=== PATIENT | female | born 1980 | race Caucasian/White ===

== ENCOUNTER 2020-03-06 22:06 | Emergency (ER) | payer MEDICAID ==
[~2020-03-06] VITALS: Ht 165.1 cm; Wt 59.0 kg
--- NOTE | 2020-03-06 22:21 | NUR ---
PT CAME TO ER BED 9 C/O "I DRANK SOME VODKA, AND THEY MADE ME DRINK EMBALMING FLUID, SEE MY FACE?". PATIENT ADMITS TO DRINKING ALCOHOL. PATIENT DENIES SUICIDAL IDEATION, DENIES AUDITORY AND VISUAL HALLUCINATION. AAOX3. NO SOB. BREATHING EVENLY AND UNLABORED ON ROOM AIR. CONNECTED TO MONITOR.
--- NOTE | 2020-03-06 22:39 | NUR ---
AEROSOL SUPERVISOR AT BEDSIDE FOR BLOOD DRAW.
[2020-03-06 22:52] LABS: BASOPHILS # (AUTO) 0.1 /CMM (0.0-0.2); BASOPHILS % (AUTO) 1.4 % (0.0-2.0); HEMATOCRIT 41 % (33-45); HEMOGLOBIN 14.1 g/dL (11.5-14.8); LYMPHOCYTES # (AUTO) 2.9 /CMM (0.8-4.8); LYMPHOCYTES % (AUTO) 28.1 % (20.0-44.0); MEAN CORPUSCULAR HGB CONC 35 g/dl (31.0-36.0); MEAN CORPUSCULAR VOLUME 99 fL (82-100); MONOCYTES # (AUTO) 0.5 /CMM (0.1-1.30); MONOCYTES % (AUTO) 4.6 % (2.0-12.0); NEUTROPHILS # (AUTO) 6.5 /CMM (1.8-8.9); NEUTROPHILS % (AUTO) 62.9 % (43.0-81.0); PLATELET COUNT (AUTO) 270 /CMM (150-450); WHITE BLOOD COUNT (AUTO) 10.3 K/uL (4.3-11.0)
[2020-03-06 23:01] LABS: APPEARANCE,URINE Clear (CLEAR); BILIRUBIN,URINE Negative (NEGATIVE); BLOOD, URINE Negative Ery/uL (NEGATIVE); COLOR,URINE Yellow (YELLOW); KETONES,URINE Negative (NEGATIVE); LEUKOCYTE ESTERASE ,URINE Small (NEGATIVE); NITRITE, URINE Negative (NEGATIVE); PROTEIN,URINE Negative (NEGATIVE); UGLUCOSE Negative (NEGATIVE); UROBILINOGEN,URINE 0.2 EU/dL (0.2)
[2020-03-06 23:08] LABS: CALCIUM, SERUM 9.5 mg/dL (8.5-10.1); CARBON DIOXIDE 26 mmol/L (21-32); CHLORIDE 103 mmol/L (98-107); CREATININE 0.7 mg/dL (0.6-1.3); GLUCOSE 138 mg/dL (74-106); POTASSIUM 3.3 mmol/L (3.5-5.1); SODIUM SERUM 139 mmol/L (136-145); UREA NITROGEN, BLOOD 12 mg/dL (7-18)
[2020-03-06 23:16] LABS: ACETAMINOPHEN 0 ug/ml (10-30); ALANINE AMINOTRANSFERASE 151 U/L (12-78); ALBUMIN 4.2 g/dL (3.4-5.0); ALCOHOL, BLOOD < 3 mg/dL (0-0); ALKALINE PHOSPHATASE 86 U/L (46-116); ASPARTATE AMINOTRANSFERASE 74 U/L (15-37); BILIRUBIN,DIRECT 0.1 mg/dL (0.0-0.2); BILIRUBIN,TOTAL 0.3 mg/dL (0.2-1.0); SALICYLATE 1.9 mg/dL (2.8-20.0); TOTAL PROTEIN, SERUM 7.6 g/dL (6.4-8.2)
[2020-03-06 23:45] LABS: BACTERIA,URINE Few /HPF (None Seen); RBC,URINE 0-2 /HPF (0-2); SQUAMOUS EPITHELIAL CELL,UR Few /HPF (None Seen)
--- NOTE | 2020-03-06 23:47 | NUR ---
CALLED ISRAEL RUTHERFORD FOR EVALUATION. NO ANSWER, WILL FOLLOW UP
[2020-03-07] MEDS ORDERED: OLANZAPINE 5 MG TABLET PO ONE
[2020-03-07] MEDS ORDERED: OLANZAPINE 5 MG TABLET ONE (00:01)
--- NOTE | 2020-03-07 00:50 | NUR ---
SPOKE WITH ISRAEL RUTHERFORD FOR EVALUATION
--- NOTE | 2020-03-07 03:11 | NUR ---
PATIENT IS SLEEPING. EASILY AROUSABLE THROUGH TACTILE AND VERBAL STIMULI. BREATHING EVENLY AND UNLABORED ON ROOM AIR. PATIENT IS CURRENTLY CONNECTED TO MONITOR. SITTER AT BEDSIDE.
--- NOTE | 2020-03-07 06:00 | NUR ---
ISRAEL RUTHERFORD AT BEDSIDE FOR EVALUATION
--- NOTE | 2020-03-07 07:14 | NUR ---
CLARISA FROM [facility] INTAKE; CONFIMRED REC'D PACKET
--- NOTE | 2020-03-07 09:41 | NUR ---
Patient awake non distress @ this time folows command continue to monitor
--- NOTE | 2020-03-07 13:29 | NUR ---
PT REEVALUAED BY DR. MCGUIRE. PT IS DECLINING PSYCH PLACEMENT AT THIS TIME
--- NOTE | 2020-03-07 13:32 | NUR ---
PT. VERBALIZED UNDERSTANDING OF AFTERCARE INSTRUCTIONS.Patient discharged to home in stable condition. Written and verbal after care instructions given. Patient verbalizes understanding of instruction.
[2020-03-07 13:40] VITALS: BP 114/65
== END 2020-03-07 13:40 | disposition home or self-care (01) ==
LOC: ER 22:08
DX: R45.851 Suicidal ideations (principal); F19.10 Other psychoactive substance abuse, uncomplicated
CPT/HCPCS: 36415; 80048; 80076; 80305; 80307; 80329; 81001; 85025; 87086; 99285; G0480; 81000-TC

== ENCOUNTER 2020-03-08 07:22 | Emergency (ER) | payer MEDICAID ==
[~2020-03-08] VITALS: Ht 162.6 cm; Wt 74.8 kg
--- NOTE | 2020-03-08 07:32 | NUR ---
pt ambulatory to er bed 09 pt is c/o epigastric pain worst after eating. states been going on for the past 4 days. pt alsio c/o throath burning sensation. pt denies any other complaint. awaiting md hammond.
--- NOTE | 2020-03-08 07:36 | NUR ---
dr denson at bedside for eval.
--- NOTE | 2020-03-08 07:58 | NUR ---
urine collected and sent to lab.
--- NOTE | 2020-03-08 08:08 | NUR ---
rags laborer at bedside for blood draw.
[2020-03-08 08:12] LABS: BASOPHILS # (AUTO) 0.1 /CMM (0.0-0.2); BASOPHILS % (AUTO) 1.2 % (0.0-2.0); EOSINOPHILS % (AUTO) 4.1 % (0.0-6.0); HEMATOCRIT 40 % (33-45); HEMOGLOBIN 13.8 g/dL (11.5-14.8); LYMPHOCYTES # (AUTO) 2.2 /CMM (0.8-4.8); LYMPHOCYTES % (AUTO) 27.1 % (20.0-44.0); MEAN CORPUSCULAR HGB CONC 34 g/dl (31.0-36.0); MEAN CORPUSCULAR VOLUME 99 fL (82-100); MONOCYTES # (AUTO) 0.4 /CMM (0.1-1.30); MONOCYTES % (AUTO) 5.3 % (2.0-12.0); NEUTROPHILS % (AUTO) 62.3 % (43.0-81.0); PLATELET COUNT (AUTO) 245 /CMM (150-450); RED BLOOD CELL COUNT(AUTO) 4.05 MIL/uL (4.0-5.2)
[2020-03-08 08:19] LABS: APPEARANCE,URINE Slightly Cloudy (CLEAR); BILIRUBIN,URINE Negative (NEGATIVE); BLOOD, URINE Negative Ery/uL (NEGATIVE); COLOR,URINE Yellow (YELLOW); KETONES,URINE Negative (NEGATIVE); LEUKOCYTE ESTERASE ,URINE Trace (NEGATIVE); NITRITE, URINE Negative (NEGATIVE); PROTEIN,URINE Negative (NEGATIVE); UGLUCOSE Negative (NEGATIVE); UROBILINOGEN,URINE 0.2 EU/dL (0.2)
[2020-03-08 08:38] LABS: BACTERIA,URINE Moderate /HPF (None Seen); RBC,URINE 0-2 /HPF (0-2); SQUAMOUS EPITHELIAL CELL,UR Few /HPF (None Seen)
[2020-03-08 08:44] LABS: CARBON DIOXIDE 26 mmol/L (21-32); CHLORIDE 102 mmol/L (98-107); CREATININE 0.7 mg/dL (0.6-1.3); GLUCOSE 159 mg/dL (74-106); POTASSIUM 3.6 mmol/L (3.5-5.1); SODIUM SERUM 138 mmol/L (136-145); UREA NITROGEN, BLOOD 8 mg/dL (7-18)
[2020-03-08 08:52] LABS: ACETAMINOPHEN < 2 ug/ml (10-30); ALANINE AMINOTRANSFERASE 143 U/L (12-78); ALBUMIN 3.9 g/dL (3.4-5.0); ALCOHOL, BLOOD < 3 mg/dL (0-0); ALKALINE PHOSPHATASE 81 U/L (46-116); ASPARTATE AMINOTRANSFERASE 73 U/L (15-37); BILIRUBIN,DIRECT 0.1 mg/dL (0.0-0.2); BILIRUBIN,TOTAL 0.2 mg/dL (0.2-1.0); SALICYLATE < 2.8 mg/dL (2.8-20.0); TOTAL PROTEIN, SERUM 7.2 g/dL (6.4-8.2)
--- NOTE | 2020-03-08 08:58 | NUR ---
GRISEL WOOD CALLED FOR POSSIBLE [facility] ADMISSION PER DR WYNNE
--- NOTE | 2020-03-08 09:39 | NUR ---
VACUUM CLOSING MACHINE OPERATOR received a call from ED CRN Gener regarding pt requesting voluntary psychiatric admission. VACUUM CLOSING MACHINE OPERATOR sent [facility] face sheet and initiated voluntary placement. Clinicals faxed to [facility] intake dept.
--- NOTE | 2020-03-08 12:35 | NUR ---
pt sleeping in bed. easily arousable. on monitor w/ stable vitals. will continue to monitor.
--- NOTE | 2020-03-08 13:11 | NUR ---
ACCEPTED AT [facility]. DR. DUNAWAY, DR. TODD UNIT 1 EXT [phone]. [phone]. Addendum: 03/08/20 at 1316 by GO ACCEPTED AT [facility]. DR. DUNAWAY, DR. LUIS UNIT 1 EXT [phone]. [phone].
--- NOTE | 2020-03-08 13:18 | NUR ---
Report given to Tomi CHANCE (becca pugh) for rosa
--- NOTE | 2020-03-08 16:50 | NUR ---
CALLED [facility] FOR TRANSPORT TO [facility]. ETA 1730.
[2020-03-08 17:31] VITALS: BP 110/72
--- NOTE | 2020-03-08 17:31 | NUR ---
transported to [facility]. stable condition.
== END 2020-03-08 17:32 ==
LOC: ER 07:24
DX: R10.13 Epigastric pain (principal); F15.10 Other stimulant abuse, uncomplicated
CPT/HCPCS: 36415; 80048; 80076; 80305; 80307; 80329; 81001; 84703; 85025; 87086; 99285; G0480; 81000-TC

== ENCOUNTER 2021-07-15 14:23 | Emergency (ER) | payer MEDICAID, OTHER ==
[~2021-07-15] VITALS: Ht 167.6 cm; Wt 60.3 kg
[2021-07-15 14:24] VITALS: BP 126/71
[2021-07-15] MEDS ORDERED: HYDROCODONE/APAP 5/325MG TABLET ONE (15:07)
[2021-07-15] MEDS: HYDROCODONE/APAP 5/325MG TABLET PO ONE (15:15)
[2021-07-15 15:21] LABS: BASOPHILS % (AUTO) 0.5 % (0.0-2.0); EOSINOPHILS % (AUTO) 0.6 % (0.0-6.0); HEMATOCRIT 39 % (33-45); HEMOGLOBIN 13.5 g/dL (11.5-14.8); LYMPHOCYTES # (AUTO) 2.3 K/uL (0.8-4.8); LYMPHOCYTES % (AUTO) 24.1 % (20.0-44.0); MEAN CORPUSCULAR HGB CONC 35 g/dl (31.0-36.0); MEAN CORPUSCULAR VOLUME 97 fL (82-100); MONOCYTES # (AUTO) 0.6 K/uL (0.1-1.30); MONOCYTES % (AUTO) 6.7 % (2.0-12.0); NEUTROPHILS # (AUTO) 6.4 K/uL (1.8-8.9); NEUTROPHILS % (AUTO) 68.1 % (43.0-81.0); PLATELET COUNT (AUTO) 277 K/uL (150-450); RED BLOOD CELL COUNT(AUTO) 4.03 MIL/uL (4.0-5.2); WHITE BLOOD COUNT (AUTO) 9.4 K/uL (4.3-11.0)
[2021-07-15 15:33] LABS: CALCIUM, SERUM 9.1 mg/dL (8.5-10.1); CARBON DIOXIDE 24 mmol/L (21-32); CHLORIDE 102 mmol/L (98-107); CREATININE 0.6 mg/dL (0.6-1.3); GLUCOSE 84 mg/dL (74-106); POTASSIUM 3.6 mmol/L (3.5-5.1); SODIUM SERUM 137 mmol/L (136-145); UREA NITROGEN, BLOOD 13 mg/dL (7-18)
[2021-07-15 15:39] LABS: ALANINE AMINOTRANSFERASE 44 U/L (12-78); ALBUMIN 4.1 g/dL (3.4-5.0); ALCOHOL, BLOOD < 3 mg/dL (0-0); ALKALINE PHOSPHATASE 75 U/L (46-116); ASPARTATE AMINOTRANSFERASE 27 U/L (15-37); BILIRUBIN,DIRECT 0.1 mg/dL (0.0-0.2); BILIRUBIN,TOTAL 0.5 mg/dL (0.2-1.0); TOTAL PROTEIN, SERUM 7.6 g/dL (6.4-8.2)
[2021-07-15 15:42] LABS: ACETAMINOPHEN < 0 ug/ml (10-30)
--- NOTE | 2021-07-15 15:52 | NUR ---
Patient eloped from facility. ER MD notified.
== END 2021-07-15 15:53 | disposition left against medical advice (07) ==
LOC: ER 14:31
DX: R51.9 Headache, unspecified (principal); M54.9 Dorsalgia, unspecified; Y00.XXXA Assault by blunt object, initial encounter; Y93.89 Activity, other specified; Y92.89 Other specified places as the place of occurrence of the external cause; Y99.8 Other external cause status
CPT/HCPCS: 36415; 80048-TC; 80076-TC; 85025-TC; G0480